=== PATIENT | male | born 1980 | race Two or more races ===

== ENCOUNTER → 2019-08-26 | Emergency (ER) | payer MEDICAID ==
[~2019-08-26] VITALS: Ht 170.2 cm; Wt 90.7 kg
[~2019-08-26] MED LIST: SODIUM CHLORIDE 0.9% 1,000 ML IV ONE
[2019-08-26 15:36] LABS: Basophils # (auto) 0 10 ^3/uL (0-0.2); Basophils % (auto) 0.2 % (0.0-2.0); Eosinophils # (auto) 0 10 ^3/uL (0-0.8); Lymphocytes # (auto) 2.5 10 ^3/uL (0.4-5.4); Neutrophils # (auto) 4.7 10 ^3/uL (1.6-8.6); Red Blood Cells 4.81 10^6/uL (4.5-5.90); White Blood Cell 7.7 10^3/uL (4.4-10.8)
[2019-08-26 15:54] LABS: Eosinophils % (auto) 0.1 % (0.0-7.0); Hematocrit 45.2 % (41.0-53.0); Hemoglobin 16.1 g/dL (13.5-17.5); Lymphocytes % (auto) 32.9 % (10.0-50.0); Mean Corpuscular Hemoglobin 33.6 pg (28.0-32.0); Mean Corpuscular Hgb Conc. 35.7 g/dL (32.0-36.0); Mean Corpuscular Volume 93.9 fL (80.0-100.0); Monocytes # (auto) 0.4 10 ^3/uL (0-1.3); Monocytes % (auto) 5.9 % (0.0-12.0); Neutrophils % (auto) 60.9 % (37.0-80.0); Platelet Count (auto) 239 10^3/uL (140-450); Red Cell Distribution Width 13.3 % (11.8-14.3)
[2019-08-26 16:00] LABS: Albumin 3.9 g/dL (3.4-5.0); Anion Gap 4 (5-15); Blood Urea Nitrogen 15 mg/dL (7-18); Calcium 8.8 mg/dL (8.5-10.1); Carbon Dioxide 27 mmol/L (21-32); Chloride 110 mmol/L (98-107); Glucose 100 mg/dL (74-106); Potassium 3.9 mmol/L (3.5-5.1); Sodium 141 mmol/L (136-145)
[2019-08-26 16:07] LABS: Alanine Aminotransferase 49 U/L (16-61); Alkaline Phosphatase 75 U/L (45-117); Aspartate Aminotransferase 23 U/L (15-37); BUN/Creatinine Ratio 20.5; Bilirubin, Total 0.6 mg/dL (0.2-1.0); GFR African American 155 mL/min; GFR Non-African American 128 mL/min; Total Protein 6.8 g/dL (6.4-8.2)
[2019-08-26 16:30] VITALS: BP 108/63
== END | disposition home or self-care (01) ==
LOC: ER 13:07
DX: F41.9 Anxiety disorder, unspecified (principal); Z98.890 Other specified postprocedural states
CPT/HCPCS: 36415; 70450; 80053; 84484; 85025

== ENCOUNTER 2021-05-11 02:57 | Emergency (ER) | payer MEDICAID ==
[~2021-05-11] VITALS: Ht 172.7 cm; Wt 81.6 kg
[2021-05-11] MEDS ORDERED: SODIUM CHLORIDE 0.9% 2,000 ML IV ONE (04:30)
[2021-05-11] MEDS ORDERED: THIAMINE 100mg/ml INJ (200mg/2ml VIAL) IV ONE (06:45)
[2021-05-11 06:56] LABS: Basophils # (auto) 0 10 ^3/uL (0-0.2); Basophils % (auto) 0.2 % (0.0-2.0); Eosinophils # (auto) 0 10 ^3/uL (0-0.8); Eosinophils % (auto) 0.1 % (0.0-7.0); Hematocrit 48.6 % (41.0-53.0); Hemoglobin 16.9 g/dL (13.5-17.5); Lymphocytes # (auto) 2.1 10 ^3/uL (0.4-5.4); Lymphocytes % (auto) 21.4 % (10.0-50.0); Mean Corpuscular Hemoglobin 33.3 pg (28.0-32.0); Mean Corpuscular Hgb Conc. 34.8 g/dL (32.0-36.0); Mean Corpuscular Volume 95.5 fL (80.0-100.0); Monocytes # (auto) 0.3 10 ^3/uL (0-1.3); Monocytes % (auto) 2.7 % (0.0-12.0); Neutrophils # (auto) 7.4 10 ^3/uL (1.6-8.6); Neutrophils % (auto) 75.6 % (37.0-80.0); Red Blood Cells 5.08 10^6/uL (4.5-5.90); Red Cell Distribution Width 13.3 % (11.8-14.3); White Blood Cell 9.8 10^3/uL (4.4-10.8)
[2021-05-11 07:13] LABS: Albumin 4.1 g/dL (3.4-5.0); Calcium 8.4 mg/dL (8.5-10.1); Potassium 4.1 mmol/L (3.5-5.1)
[2021-05-11 07:16] LABS: Bilirubin, Total 0.4 mg/dL (0.2-1.0)
[2021-05-11 08:21] VITALS: BP 111/68
== END 2021-05-11 09:00 | disposition home or self-care (01) ==
LOC: ER 02:57 → EDBD 02:57 → ER 09:00
DX: F10.129 Alcohol abuse with intoxication, unspecified (principal); R41.82 Altered mental status, unspecified; Y90.8 Blood alcohol level of 240 mg/100 ml or more
CPT/HCPCS: 36415; 70450; 80053; 80320; 85025; 96361; 96374; 99284; J3411; J7030

== ENCOUNTER 2022-11-12 16:47 | Emergency (ER) | payer MEDICAID ==
[~2022-11-12] VITALS: Ht 170.2 cm; Wt 105.7 kg
[2022-11-12 17:50] LABS: Basophils # (auto) 0 10 ^3/uL (0-0.2); Basophils % (auto) 0.4 % (0.0-2.0); Eosinophils # (auto) 0 10 ^3/uL (0-0.8); Eosinophils % (auto) 0.6 % (0.0-7.0); Hematocrit 45.8 % (41.0-53.0); Hemoglobin 16.5 g/dL (13.5-17.5); Lymphocytes # (auto) 3.2 10 ^3/uL (0.4-5.4); Lymphocytes % (auto) 40.6 % (10.0-50.0); Mean Corpuscular Hgb Conc. 36.1 g/dL (32.0-36.0); Mean Corpuscular Volume 94.1 fL (80.0-100.0); Monocytes # (auto) 0.6 10 ^3/uL (0-1.3); Monocytes % (auto) 7.3 % (0.0-12.0); Neutrophils % (auto) 51.1 % (37.0-80.0); Nucleated Red Blood Cells % 0.1 %; Red Blood Cells 4.87 10^6/uL (4.5-5.90); Red Cell Distribution Width 13.5 % (11.8-14.3); White Blood Cell 7.8 10^3/uL (4.4-10.8)
[2022-11-12 18:25] LABS: Albumin 4.2 g/dL (3.4-5.0); Calcium 8.7 mg/dL (8.5-10.1); Potassium 3.8 mmol/L (3.5-5.1)
[2022-11-12 18:29] LABS: BUN/Creatinine Ratio 13.8 (10.0-20.0); Bilirubin, Total 0.8 mg/dL (0.2-1.0)
[2022-11-12] MEDS ORDERED: MORPHINE SULFATE 4 MG/ML SYR/VIAL IV ONE (20:45)
[2022-11-12] MEDS ORDERED: ONDANSETRON HCL 4 MG/2 ML VIAL IV ONE (20:45)
[2022-11-12] MEDS ORDERED: SODIUM CHLORIDE 0.9% 1,000 ML IV ONE (20:45)
[2022-11-12 21:26] LABS: Urine Bacteria NONE SEEN /hpf (None Seen); Urine Blood Negative /uL (Negative); Urine Mucus FEW (None Seen); Urine Specific Gravity 1.022 (1.001-1.035); Urine WBC 1 /hpf (0 - 3)
[2022-11-12] MEDS ORDERED: CYCL-839 PO (21:58)
[2022-11-12] MEDS ORDERED: TAMS-35 PO (21:58)
[2022-11-12] MEDS ORDERED: ZOFR4T PO (21:58)
[2022-11-12] MEDS ORDERED: IBUP-1455 PO (21:58)
[2022-11-13 01:00] VITALS: BP 118/73
[2022-11-13] MEDS ORDERED: HYDROcodone-ACET 10/325MG TAB PO ONE (01:15)
[2022-11-13] MEDS ORDERED: KETOROLAC TROMETH 30 MG/ML 1ML VIAL IV ONE (01:15)
== END 2022-11-13 01:54 | disposition home or self-care (01) ==
LOC: ER 16:47
DX: N20.0 Calculus of kidney (principal); N43.3 Hydrocele, unspecified; M62.830 Muscle spasm of back
CPT/HCPCS: 36415; 72100; 74176; 76870; 80053; 81001; 83690; 85025; 96361; 96374; 96375; 99285; J1885; J2405; J7030